=== PATIENT | male | born 1985 | race Caucasian/White ===

== ENCOUNTER 2025-01-24 14:19 | Outpatient (CLI) | payer OTHER, SELFPAY | END 2025-01-24 14:20 | disposition home or self-care (01) | LOC: NFLDREF 02-01 10:40 | PROVIDERS: PCP Physician Assistant Medical; Referring Provider Physician Assistant Medical; Visit Provider Physician Assistant Medical | DX: Z00.01 Encounter for general adult medical examination with abnormal findings (principal); F41.9 Anxiety disorder, unspecified; M10.9 Gout, unspecified; Z13.6 Encounter for screening for cardiovascular disorders | CPT/HCPCS: 80053; 82465; 84443; 84550 ==